=== PATIENT | male | born 1965 | race Caucasian/White ===

== ENCOUNTER 2022-11-14 11:00 | Outpatient (CLI) | payer OTHER, SELFPAY | END 2022-11-14 11:01 | disposition home or self-care (01) | LOC: SLEEP 11-15 09:37 | PROVIDERS: Family Provider Family Medicine; Visit Provider Family Medicine | DX: G47.33 Obstructive sleep apnea (adult) (pediatric) (principal) | CPT/HCPCS: G0399 ==

== ENCOUNTER 2024-01-17 07:17 | Outpatient (CLI) | payer OTHER, SELFPAY ==
--- NOTE | 2024-01-17 07:51 | MR_ITS ---
WS: [id number] MRI LEFT KNEE HISTORY: MASS OF LEFT KNEE COMPARISON: Radiograph 01/01/2024 Anterior cruciate ligament: Mild mucoid degeneration proximal ACL. No full-thickness tear. Posterior cruciate ligament: Intact. Medial collateral ligament: Displaced from the joint line by the extruded meniscus. There is a small amount of adjacent fluid below the knee joint. Posterior lateral corner structures: Intact. Medial menisci: Horizontal tear in the posterior horn. The tear extends to the inferior articular feroz face in the periphery. There is additional increased signal throughout the remaining meniscus. Menisc us is partially extruded from the joint line. Lateral meniscus: Mild surface fraying but no tear. Extensor mechanism: Distal quadriceps tendon and patellar tendons are intact. Fluid and soft tissue: Small suprapatellar joint effusion. Very large lobulated Scott's cyst extends over a length of at least 8.5 cm. There is a small amount of adjacent fluid suggesting there may be a partial rupture. Osseous and articular structures: Patellofemoral compartment: Moderate patellofemoral joint space narrowing with loss of cartilage. Car tilage loss is most significant along the lateral patellar facet. There is mild subchondral fissuring and edema along the articular surface of the patella. There is corresponding increased T2 signal and marrow edema in the lateral femoral condyle. There is slight lateral subluxation of the patella. Medial compartment: Mild narrowing of the medial compartment. Small osteophytes and mild diffuse shari dromalacia. Towards the meniscal root there is a rounded area of intermediate signal measuring 6.9 mm . This may be part of a meniscal fragment or a small loose body. Lateral compartment: Mild narrowing of the lateral compartment. Mild chondromalacia. Small marginal o steophytes. No fracture. IMPRESSION: 1. Large lobulated Scott's cyst extends over a length of 8.5 cm. Small amount of adjacent fluid sugg esting partial rupture or associated inflammation. 2. Horizontal tear posterior horn medial meniscus. 3. There is an additional 6.9 mm intermediate signal nodule associated with the medial meniscus towa rds the meniscal root. I suspect this is either a small meniscal fragment or loose body. 4. 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 5. 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 6. Small suprapatellar joint effusion.
== END 2024-01-17 07:18 | disposition home or self-care (01) ==
LOC: RAD 07:17
PROVIDERS: Family Provider Family Medicine; Visit Provider Family Medicine
DX: S83.242A Other tear of medial meniscus, current injury, left knee, initial encounter (principal); M71.22 Synovial cyst of popliteal space [Baker], left knee; M17.12 Unilateral primary osteoarthritis, left knee; M94.262 Chondromalacia, left knee; M25.462 Effusion, left knee; X58.XXXA Exposure to other specified factors, initial encounter
CPT/HCPCS: 73721

== ENCOUNTER → 2024-06-25 09:26 | Outpatient (BNVA) | payer OTHER, SELFPAY | PROVIDERS: Family Provider Family Medicine; PCP Family Medicine; Visit Provider Podiatrist Foot & Ankle Surgery | DX: M21.612 Bunion of left foot; L84 Corns and callosities | CPT/HCPCS: 73630 ==

== ENCOUNTER 2025-03-06 20:00 | Outpatient (CLI) | payer OTHER, SELFPAY | END 2025-03-06 20:01 | disposition home or self-care (01) | LOC: SLEEP 23:34 | PROVIDERS: Family Provider Family Medicine; PCP Family Medicine; Visit Provider Specialist | DX: G47.33 Obstructive sleep apnea (adult) (pediatric) (principal) | CPT/HCPCS: 95810 ==